=== PATIENT | male | born 1940 | race Caucasian/White ===

== ENCOUNTER 2022-06-29 18:01 | Inpatient (IN) | payer MEDICARE, OTHER ==
[~2022-06-29] VITALS: Ht 157.5 cm; Wt 47.6 kg
--- NOTE | 2022-06-29 19:06 | NUR ---
DR BRAR AT BEDSIDE FOR EVAL
--- NOTE | 2022-06-29 19:26 | NUR ---
COVID SWAB COLLECTED AND SENT TO LAB
[2022-06-29] MEDS ORDERED: MORPHINE SULFATE INJ 2 MG/ML DISP.SYRIN IV ONE (19:30)
--- NOTE | 2022-06-29 19:48 | NUR ---
RECEIVED PATIENT AAOX4. CAME WITH CC OF BLACK TARRY STOOL. PATIENT FOR ADMISSION. COVID SWAB DONE. ATTACHED TO MONITOR. VITALS CHECKED.
[2022-06-29] MEDS ORDERED: MORPHINE SULFATE INJ 4 MG/ML DISP.SYRIN ONE (19:56)
[2022-06-29 20:05] LABS: CARBON DIOXIDE 34 mmol/L (21-32); CHLORIDE 102 mmol/L (98-107); CREATININE 1.2 mg/dL (0.6-1.3); GLUCOSE 103 mg/dL (74-106); POTASSIUM 4.4 mmol/L (3.5-5.1); SODIUM SERUM 137 mmol/L (136-145); UREA NITROGEN, BLOOD 19 mg/dL (7-18)
--- NOTE | 2022-06-29 20:20 | NUR ---
IV CANNULA G20 INSERTED ON RIGHT AC. MEDS GIVEN
[2022-06-29 20:22] LABS: ALANINE AMINOTRANSFERASE 15 U/L (12-78); ALBUMIN 3.4 g/dL (3.4-5.0); ALKALINE PHOSPHATASE 59 U/L (46-116); ASPARTATE AMINOTRANSFERASE 20 U/L (15-37); BILIRUBIN,DIRECT 0.1 mg/dL (0.0-0.2); BILIRUBIN,TOTAL 0.4 mg/dL (0.2-1.0); LIPASE 99 U/L (73-393)
--- NOTE | 2022-06-29 20:23 | NUR ---
PT TO CT
[2022-06-29] MEDS ORDERED: IV NS 0.9% 250 ML IV ONE (20:25)
[2022-06-29] MEDS ORDERED: IOHEXOL-300 100 ML VIAL IV ONE (20:25)
[2022-06-29] MEDS ORDERED: CT SWABBABLE VALVE TRANS SET 1 EA INFUS.SET MC ONE (20:25)
[2022-06-29 20:40] LABS: BASOPHILS % (AUTO) 0.3 % (0.0-2.0); EOSINOPHILS % (AUTO) 1.1 % (0.0-6.0); HEMATOCRIT 39 % (39-51); HEMOGLOBIN 12.9 g/dL (13.5-17.5); LYMPHOCYTES # (AUTO) 1.3 K/uL (0.8-4.8); LYMPHOCYTES % (AUTO) 12.8 % (20.0-44.0); MEAN CORPUSCULAR HGB CONC 33 g/dl (31.0-36.0); MEAN CORPUSCULAR VOLUME 93 fL (80-96); MONOCYTES # (AUTO) 0.9 K/uL (0.1-1.30); MONOCYTES % (AUTO) 9.2 % (2.0-12.0); NEUTROPHILS # (AUTO) 7.5 K/uL (1.8-8.9); NEUTROPHILS % (AUTO) 76.6 % (43.0-81.0); PLATELET COUNT (AUTO) 234 K/uL (150-450); RED BLOOD CELL COUNT(AUTO) 4.19 MIL/uL (4.5-6.0); WHITE BLOOD COUNT (AUTO) 9.8 K/uL (4.3-11.0)
[2022-06-29] MEDS ORDERED: ALPRAZOLAM 0.5 MG TABLET PO ONE (21:30)
[2022-06-29] MEDS ORDERED: ALPRAZOLAM 0.5 MG TABLET ONE (21:32)
--- NOTE | 2022-06-29 22:18 | NUR ---
DR ELY PAGEChase
--- NOTE | 2022-06-29 22:49 | NUR ---
DR ELY PAGED AGAIN
[2022-06-29] MEDS ORDERED: ZOLPIDEM TARTRATE 5 MG TABLET PO PRN (23:30)
[2022-06-29] MEDS ORDERED: ONDANSETRON HCL/PF 4 MG/2 ML VIAL IVP PRN (23:30)
[2022-06-29] MEDS ORDERED: Z GUARD REMEDY 4 OZ OINT TP PRN (23:30)
[2022-06-29] MEDS ORDERED: MAG HYDROX/AL HYDROX/SIMETH 30 ML UDC PO PRN (23:30)
[2022-06-29] MEDS ORDERED: ACETAMINOPHEN 325 MG TABLET PO PRN (23:30)
[2022-06-29] MEDS ORDERED: MAGNESIUM HYDROXIDE 30 ML UDC PO PRN (23:30)
--- NOTE | 2022-06-30 01:10 | NUR ---
TRANSFERRED TO ROOM VIA BED
--- NOTE | 2022-06-30 01:14 | NUR ---
REPORT GIVEN TO PHILLIP QURESHI FOR NARENDRA
[2022-06-30 01:27] LABS: HEMOGLOBIN 12.4 g/dL (13.5-17.5)
[2022-06-30 01:30] VITALS: BP 129/59
--- NOTE | 2022-06-30 01:30 | NUR ---
RN ADMITTING NOTE PATIENT ADMITTED FROM ER FOR GI BLEED. PER PATIENT HE HAD AN EPISODE OF BLACK STOOL IN AM. HE STATES THAT HE ALSO WENT OT THE ER 3 WKS AGO FOR THE SAME PROBLEM BUT NOT ADMITTED. PATIENT IS A/O X 3-4 AT THIS TIME, ABLE TO MAKE NEEDS KNOWN. RECEIVED PATIENT ON 2 LPM VIA NC, SATTING 91-93%. PATIENT HAS HX OF COPD. PATIENT DOES NOT HAVE ANY SOB OR RESPIRATORY DISTRESS. PATIENT DENIES ANY DIFFICULTY BREATHING. PATIENT REPORT ABD PAIN, BUT NO PAIN MEDICATION NEEDED FOR NOW PER PATIENT. PATIENT'S SKIN INTACT. RAC 20 G PATENT AND INTACT, FLUSHING WELL. PATIENT STATES HE IS VACCINATED AGAINST COVID X 3. PATIENT WANTS TO SPEAK WITH MD FIRST BEFORE RECEIVING FLU SHOT OR PNEUMONIA SHOT, SAYS IF DR SAYS OKAY THEN HE WILL GET IT. PATIENT IS AMBULATORY WITH [facility]. BELONGINGS INVENTORIED. ORIENTED PATIENT TO ROOM, RN, AND WRAPPING MACHINE HELPER. SAFETY MEASURES IN PLACE: BED LOCKED AND IN LOWEST POSITION, CALL LIGHT WITHIN REACH, SIDE RAILS UP. WILL MONITOR PATIENT CLOSELY.
--- NOTE | 2022-06-30 01:45 | NUR ---
RN NOTE PATIENT REQUESTING SLEEPING MEDICATION. MD ORDERED RESTORIL 15 MG QHS.
[2022-06-30] MEDS: TEMAZEPAM 15 MG CAPSULE PO PRN ×2 (02:14→22:13)
[2022-06-30] MEDS: IV NS 0.9% 1,000 ML IV PRN ×2 (02:22→13:20)
[2022-06-30 06:04] LABS: BASOPHILS % (AUTO) 0.4 % (0.0-2.0); EOSINOPHILS % (AUTO) 1.7 % (0.0-6.0); HEMATOCRIT 37 % (39-51); HEMOGLOBIN 12.2 g/dL (13.5-17.5); LYMPHOCYTES # (AUTO) 1.4 K/uL (0.8-4.8); LYMPHOCYTES % (AUTO) 15.3 % (20.0-44.0); MEAN CORPUSCULAR HGB CONC 33 g/dl (31.0-36.0); MEAN CORPUSCULAR VOLUME 93 fL (80-96); MONOCYTES % (AUTO) 10.6 % (2.0-12.0); NEUTROPHILS # (AUTO) 6.8 K/uL (1.8-8.9); PLATELET COUNT (AUTO) 216 K/uL (150-450); RED BLOOD CELL COUNT(AUTO) 4.04 MIL/uL (4.5-6.0); WHITE BLOOD COUNT (AUTO) 9.4 K/uL (4.3-11.0)
--- NOTE | 2022-06-30 06:42 | NUR ---
RN CLOSING NOTE PATIENT IS IN BED, EYES CLOSED, EASILY AWAKENED WITH VERBAL AND TOUCH STIMULI. A/O X 3-4 AT THIS TIME, ABLE TO MAKE NEEDS KNOWN. PATIENT ON 2 LPM VIA NC, SATTING 91-93%. PATIENT DOES NOT HAVE ANY SOB OR RESPIRATORY DISTRESS. PATIENT DENIES ANY DIFFICULTY BREATHING. PATIENT DOES NOT REPORT ANY PAIN AT THIS TIME. R FA 20 G PATENT AND INTACT, FLUSHING WELL. WILL ENDORSE TO DAY RN TO OBTAIN MED LIST FROM . SCD'S ARE ON. SAFETY MEASURES IN PLACE: BED LOCKED AND IN LOWEST POSITION, CALL LIGHT WITHIN REACH, SIDE RAILS UP. ALL NEEDS MET AND ATTENDED. ALL ORDERS CARRIED OUT. WILL ENDORSE TO DAY SHIFT NURSE FOR NARENDRA.
--- NOTE | 2022-06-30 07:30 | NUR ---
RN OPENING NOTE PATIENT IS IN BED, EYES CLOSED, EASILY AWAKENED WITH VERBAL AND TOUCH STIMULI. A/O X 3-4 AT THIS TIME, ABLE TO MAKE NEEDS KNOWN. PATIENT ON 2 LPM VIA NC, SATURATING 91-93%. PATIENT DOES NOT HAVE ANY SOB OR RESPIRATORY DISTRESS. PATIENT DENIES ANY DIFFICULTY BREATHING. PATIENT DOES NOT REPORT ANY PAIN AT THIS TIME. IV ACCESS ON RFA 20G WITH NS RUNNING AT 90ML/HR. PATENT AND INTACT. SAFETY MEASURES IN PLACE: BED LOCKED AND IN LOWEST POSITION, CALL LIGHT WITHIN REACH, SIDE RAILS UP X2. WILL CONTINUE TO MONITOR
[2022-06-30 08:09] LABS: ALBUMIN 2.9 g/dL (3.4-5.0); BILIRUBIN,TOTAL 0.3 mg/dL (0.2-1.0); CALCIUM, SERUM 8.4 mg/dL (8.5-10.1); MAGNESIUM 1.9 mg/dL (1.8-2.4); PHOSPHORUS 3.4 mg/dL (2.5-4.9); POTASSIUM 3.8 mmol/L (3.5-5.1); TOTAL PROTEIN, SERUM 6.3 g/dL (6.4-8.2)
[2022-06-30] MEDS: PANTOPRAZOLE 40 MG VIAL IV SCH ×2 (09:17→20:23)
[2022-06-30] MEDS ORDERED: FAMO40TA7 PO (09:43)
[2022-06-30] MEDS ORDERED: TAMS-12 PO (09:43)
[2022-06-30] MEDS ORDERED: BICA50TA8 PO (09:43)
[2022-06-30] MEDS ORDERED: MIRT7.5T10 PO (09:43)
[2022-06-30] MEDS ORDERED: DUTA0.5C37 PO (09:43)
[2022-06-30] MEDS ORDERED: ALPR0.5T8 PO (09:43)
--- NOTE | 2022-06-30 11:08 | NUR ---
RN NOTES DR FARRELL ON UNIT AND INFORMED HIM TO DO HOME MEDS RECONCILIATION OF PT. HE STATED THAT HE WILL DO IT.
[2022-06-30] MEDS: PSYLLIUM SEED 1 PKT PACKET PO SCH (13:16)
--- NOTE | 2022-06-30 18:40 | NUR ---
MS RN CLOSING NOTES PATIENT IN BED WATCHING TV AT THIS TIME. HOB ELEVATED. A/O X3. ABLE TO VERBALIZED NEEDS. ON 02 VIA N/C @2LPM, TOLERATING WELL, BREATHING UNLABORED. IV ACCESS ON RFA #20G INTACT WITH IVF OF NS RUNNING AT 90 ML/HR, NO /S OF INFILTRATION AT SITE NOTED. ALL NEEDS AND CARE ATTENDED WELL. SAFETY MEASURES MAINTAINED: TRAY TABLE AND CALL LIGHT WITHIN REACH, BED ALARM ON, SIDE RAILS UP X2, BED LOCKED IN LOWEST POSITION. WILL ENDORSE NARENDRA TO [employer] RESELLER NURSE.
[2022-06-30 20:00] VITALS: BP 132/98
[2022-07-01] MEDS: IV NS 0.9% 1,000 ML IV PRN ×2 (00:49→11:25)
[2022-07-01 01:43] LABS: HEMOGLOBIN 11.4 g/dL (13.5-17.5)
--- NOTE | 2022-07-01 06:31 | NUR ---
RN NOTES: PATIENT IN BED RESTING.. A/O X3. ABLE TO VERBALIZED NEEDS. ON 02 VIA N/C @2LPM, TOLERATING WELL, BREATHING UNLABORED. IV ACCESS ON RFA #20G INTACT WITH IVF OF NS RUNNING AT 90 ML/HR, NO /S OF INFILTRATION AT SITE NOTED. ALL NEEDS AND CARE ATTENDED WELL. SAFETY MEASURES MAINTAINED: CALL LIGHT WITHIN REACH, BED ALARM ON, SIDE RAILS UP X2, BED LOCKED IN LOWEST POSITION. WILL ENDORSE NARENDRA TO [employer] SCIENCE HEALER NURSE. Addendum: 07/01/22 at 0636 by NATHANIEL HASTINGS RN RN NOTES: WILL ENDORSE NARENDRA TO DAY SHIFT NURSE.
[2022-07-01 07:00] VITALS: BP 142/67
--- NOTE | 2022-07-01 07:27 | NUR ---
RN OPENING NOTES RECEIVED PATIENT ASLEEP IN BED, EASILY AROUSED. A/O X3, VERBALLY RESPONSIVE. NO SIGNS OF ACUTE DISTRESS NOTED. ON O2 @ 2LPM VIA N/C, NO SOB NOTED, BREATHING EVEN AND UNLABORED. NO C/O PAIN AT THIS TIME. NOTED WITH IV ACCESS ON RIGHT FOREARM #20G. WITH NS @90ML/HR RUNNING. SAFETY MEASURE IN PLACE. BED IN LOWEST AND LOCKED POSITION, SIDE RAILS UP X2, CALL LIGHT PLACED WITHIN EASY REACH. WILL CONTINUE TO MONITOR PATIENT.
[2022-07-01] MEDS: PSYLLIUM SEED 1 PKT PACKET PO SCH (08:08)
[2022-07-01] MEDS: PANTOPRAZOLE 40 MG VIAL IV SCH (08:08)
[2022-07-01 15:27] LABS: BASOPHILS % (AUTO) 0.3 % (0.0-2.0); EOSINOPHILS % (AUTO) 1.1 % (0.0-6.0); HEMATOCRIT 35 % (39-51); HEMOGLOBIN 11.6 g/dL (13.5-17.5); LYMPHOCYTES % (AUTO) 12.7 % (20.0-44.0); MEAN CORPUSCULAR HGB CONC 33 g/dl (31.0-36.0); MEAN CORPUSCULAR VOLUME 92 fL (80-96); MONOCYTES # (AUTO) 0.5 K/uL (0.1-1.30); MONOCYTES % (AUTO) 6.1 % (2.0-12.0); NEUTROPHILS # (AUTO) 6.6 K/uL (1.8-8.9); NEUTROPHILS % (AUTO) 79.8 % (43.0-81.0); PLATELET COUNT (AUTO) 200 K/uL (150-450); RED BLOOD CELL COUNT(AUTO) 3.81 MIL/uL (4.5-6.0); WHITE BLOOD COUNT (AUTO) 8.2 K/uL (4.3-11.0)
[2022-07-01 15:45] LABS: CALCIUM, SERUM 8.1 mg/dL (8.5-10.1); POTASSIUM 4.1 mmol/L (3.5-5.1)
--- NOTE | 2022-07-01 18:47 | NUR ---
RN CLOSING NOTES PATIENT IN BED, AWAKE, A/O X3, VERBALLY RESPONSIVE. NO SIGNS OF ACUTE DISTRESS NOTED. CURRENTLY ON O2 @ 2LPM VIA N/C, NO SOB NOTED, BREATHING EVEN AND UNLABORED. NO C/O PAIN AT THIS TIME. IV ACCESS ON RIGHT FOREARM #20G, INTACT AND PATENT. WITH NS @90ML/HR RUNNING. SAFETY MEASURE IN PLACE. BED IN LOWEST AND LOCKED POSITION, SIDE RAILS UP X2, CALL LIGHT PLACED WITHIN EASY REACH. WILL ENDORSE TO NEXT SHIFT FOR CONTINUITY OF CARE.
[2022-07-01 20:00] VITALS: BP 125/73
[2022-07-01] MEDS: PANTOPRAZOLE 40 MG/PACK PACK PO SCH (21:09)
--- NOTE | 2022-07-01 21:16 | NUR ---
UNABLE TO SLEEP Patient in bed, request for sleep aid, unable to sleep. Given Ambien, will monitor hours of sleep. Fall precaution maintained.
--- NOTE | 2022-07-01 23:29 | NUR ---
AMBIEN 5MG INEFFECTIVE Patient c/o unable to sleep, Ambien 5mg ineffective. Patient request another sleep medication. Active orders Ambien 5mg HS PRN and Restoril 15mg HS PRN, orders clarified with MELITA Aguilera. New orders given- DC Ambien, Given Ambien 5mg x1 now. Will cont to monitor, maintained fall precaution.
[2022-07-01] MEDS ORDERED: ZOLPIDEM TARTRATE 5 MG TABLET PO PRN (23:30)
[2022-07-02] MEDS: IV NS 0.9% 1,000 ML IV PRN (01:33)
--- NOTE | 2022-07-02 06:19 | NUR ---
END OF SHIFT REPORT Patient in bed, Alert Oriented x3. Oxygen sat 97% on 2L NC, observed no sob with exertion. RFA IV line intact, IVF infusing. Ambulated to the bathroom with FWW. No BM during the shift. No episode of rectal bleed. 5 Hours of sleep with Ambien. Fall precaution maintained. GI recommend Colonoscopy outpatient. Plan for dc home. Will endorse to oncoming RN.
[2022-07-02 07:00] VITALS: BP 128/63
--- NOTE | 2022-07-02 07:46 | NUR ---
MS RN OPENING NOTE PATIENT LAYING IN BED, A/O X 3, ABLE TO MAKE NEEDS KNOWN, TOLERATING WELL ON 2 LPM O2 VIA CANNULA WITH NO S/S RESPIRATORY DISTRESS. NO COMPLAINTS OF PAIN OR DISCOMFORT AT THIS TIME. R FA IV CLEAN, INTACT, AND INFUSING NS @ 90 ML/HR. SAFETY MEASURES IN PLACE: BED IN LOWEST LOCKED POSITION, SIDE RAILS UP X 2, CALL LIGHT WITHIN REACH. WILL CONTINUE TO MONITOR.
[2022-07-02] MEDS: PANTOPRAZOLE 40 MG/PACK PACK PO SCH (08:37)
[2022-07-02] MEDS: PSYLLIUM SEED 1 PKT PACKET PO SCH (08:37)
--- NOTE | 2022-07-02 13:00 | NUR ---
MS BODY LINER NOTE PATIENT MADE AWARE OF MD DISCHARGE ORDER AND INSTRUCTIONS. PATIENT VERBALIZED UNDERSTANDING OF MD DISCHARGE INSTRUCTIONS AND POSSESSION OF ALL BELONGINGS, AND PATIENT SIGNED MD DISCHARGE INSTRUCTIONS SHEET AND BELONGINGS LIST. PATIENT STATED HE DID NOT WANT TO GO TO A SNF AT THIS TIME AND WANTED TO BE DISCHARGED HOME, PATIENT A/O X 3 AND SELF-RESPONSIBLE, AGREED TO TRANSPORT HIM BACK HOME. IV LINE AND ID BAND REMOVED. COPIES OF ALL PAPERWORK PROVIDED. PATIENT TRANSFERRED OFF OF UNIT VIA AMBULATION ACCOMPANIED BY HIS . PATIENT STABLE AT TIME OF DISCHARGE.
== END 2022-07-02 13:00 | disposition home health service (06) | DRG 394 ==
LOC: ER 18:13 → TELE 06-30 00:50 → MED 06-30 01:51
PROVIDERS: ADMIT Nurse Practitioner Acute Care; ATTEND Nurse Practitioner Acute Care
DX: K64.9 Unspecified hemorrhoids (principal); E44.0 Moderate protein-calorie malnutrition; Z68.1 Body mass index [BMI] 19.9 or less, adult; R64 Cachexia; C61 Malignant neoplasm of prostate; J44.9 Chronic obstructive pulmonary disease, unspecified; Z20.822 Contact with and (suspected) exposure to COVID-19; K21.9 Gastro-esophageal reflux disease without esophagitis; Z79.899 Other long term (current) drug therapy; R79.89 Other specified abnormal findings of blood chemistry; F17.210 Nicotine dependence, cigarettes, uncomplicated; N40.0 Benign prostatic hyperplasia without lower urinary tract symptoms; E88.09 Other disorders of plasma-protein metabolism, not elsewhere classified; N18.9 Chronic kidney disease, unspecified; N20.0 Calculus of kidney; N28.1 Cyst of kidney, acquired; K59.00 Constipation, unspecified; K57.30 Diverticulosis of large intestine without perforation or abscess without bleeding
CPT/HCPCS: 36415; 70450-TC; 71045-TC; 80048-TC; 80053-TC; 80076-TC; 83605-TC; 83690-TC; 83735-TC; 84100-TC; 84484-TC; 85025-TC; 85027-TC; 85730-TC; 87081-TC; 94799-TC; C9113; C9803; G0378; J2270; J7030; J7050; Q9967

== ENCOUNTER 2024-04-14 15:57 | Inpatient (IN) | payer MEDICARE, OTHER ==
[~2024-04-14] VITALS: Ht 160 cm; Wt 47.6 kg
[~2024-04-14 15:57] MED LIST: ALPR0.5T8 PO; BICA50TA8 PO; DUTA0.5C37 PO; FAMO40TA7 PO; MIRT7.5T10 PO; TAMS-12 PO
[2024-04-14 17:06] LABS: BASOPHILS % (AUTO) 0.7 % (0.0-2.0); EOSINOPHILS # (AUTO) 0.1 K/uL (0.0-0.7); EOSINOPHILS % (AUTO) 1.3 % (0.0-6.0); HEMATOCRIT 34 % (39-51); HEMOGLOBIN 11.1 g/dL (13.5-17.5); LYMPHOCYTES # (AUTO) 1.1 K/uL (0.8-4.8); LYMPHOCYTES % (AUTO) 15.1 % (20.0-44.0); MEAN CORPUSCULAR HEMOGLOBIN 30 PG (26.0-33.0); MEAN CORPUSCULAR HGB CONC 33 g/dl (31.0-36.0); MEAN CORPUSCULAR VOLUME 90 fL (80-96); MONOCYTES # (AUTO) 0.6 K/uL (0.1-1.30); MONOCYTES % (AUTO) 8.4 % (2.0-12.0); NEUTROPHILS # (AUTO) 5.5 K/uL (1.8-8.9); NEUTROPHILS % (AUTO) 74.5 % (43.0-81.0); PLATELET COUNT (AUTO) 249 K/uL (150-450); RED BLOOD CELL COUNT(AUTO) 3.74 MIL/uL (4.5-6.0); WHITE BLOOD COUNT (AUTO) 7.4 K/uL (4.3-11.0)
[2024-04-14] MEDS: ALBUTEROL FS 2.5 MG/3 ML VIAL.NEB NEB ONE ×2 (17:15→19:37)
[2024-04-14] MEDS ORDERED: ALBUTEROL FS 2.5 MG/3 ML VIAL.NEB ONE ×2 (17:16→19:40)
[2024-04-14 17:24] VITALS: O2SAT 90
[2024-04-14 17:38] VITALS: O2SAT 100
[2024-04-14 17:39] LABS: POTASSIUM 5.2 mmol/L (3.5-5.1)
[2024-04-14 17:41] LABS: CARBON DIOXIDE 32 mmol/L (21-32); CHLORIDE 103 mmol/L (98-107); SODIUM SERUM 136 mmol/L (136-145)
[2024-04-14 17:42] LABS: CALCIUM, SERUM 8.5 mg/dL (8.5-10.1); GLUCOSE 100 mg/dL (74-106); UREA NITROGEN, BLOOD 25 mg/dL (7-18)
[2024-04-14 17:43] LABS: ALANINE AMINOTRANSFERASE 28 U/L (12-78); ALBUMIN 2.6 g/dL (3.4-5.0); ALKALINE PHOSPHATASE 59 U/L (46-116); ASPARTATE AMINOTRANSFERASE 24 U/L (15-37); BILIRUBIN,DIRECT 0.1 mg/dL (0.0-0.2); BILIRUBIN,TOTAL 0.2 mg/dL (0.2-1.0); TOTAL PROTEIN, SERUM 6.5 g/dL (6.4-8.2)
[2024-04-14] MEDS ORDERED: DICY10CA13 PO (18:55)
[2024-04-14] MEDS ORDERED: CHOL100062 PO (18:55)
[2024-04-14] MEDS ORDERED: ASPI-1420 PO (18:55)
[2024-04-14] MEDS ORDERED: LISI-768 PO (18:55)
[2024-04-14] MEDS ORDERED: SENN8.6T19 PO (18:55)
[2024-04-14] MEDS ORDERED: ZOLP5TAB2 PO (18:55)
[2024-04-14] MEDS ORDERED: BISA10SU11 RC (18:55)
[2024-04-14] MEDS ORDERED: ALBU8.5H8 IH (18:55)
[2024-04-14] MEDS ORDERED: FLUT1BLS IH (18:55)
[2024-04-14] MEDS ORDERED: METO25TA6 PO (18:55)
[2024-04-14] MEDS ORDERED: ARIP2TAB3 PO (18:55)
[2024-04-14] MEDS ORDERED: OMEP40CA21 PO (18:55)
[2024-04-14] MEDS ORDERED: FOLI0.4T6 PO (18:55)
[2024-04-14] MEDS ORDERED: HYDR-4209 PO (18:55)
[2024-04-14] MEDS ORDERED: THIA50TA10 PO (18:55)
[2024-04-14] MEDS ORDERED: MIRT-90 PO (18:55)
[2024-04-14] MEDS ORDERED: DIVA125C5 PO (18:55)
[2024-04-14] MEDS ORDERED: CYCL30DR EACHEYE (18:55)
[2024-04-14] MEDS ORDERED: ATOR20TA PO (18:55)
[2024-04-14] MEDS ORDERED: ONDA-97 PO (18:55)
[2024-04-14] MEDS ORDERED: ASCO-352 PO (18:55)
[2024-04-14] MEDS ORDERED: NA P133E RC (18:55)
[2024-04-14] MEDS ORDERED: BENZ200C53 PO (18:55)
[2024-04-14] MEDS ORDERED: ALBU1.257 IH (18:55)
[2024-04-14] MEDS ORDERED: IPRA0.2S49 IH (18:55)
[2024-04-14] MEDS ORDERED: LIDO30AD10 TP (18:55)
[2024-04-14] MEDS ORDERED: MEMA10TA PO (18:55)
[2024-04-14] MEDS ORDERED: MULT-1275 PO (18:55)
[2024-04-14] MEDS ORDERED: ACET325T53 PO (18:55)
[2024-04-14] MEDS ORDERED: MAG30ORA PO (18:55)
[2024-04-14] MEDS ORDERED: IPRA3AMP23 IH (18:55)
[2024-04-14 19:41] VITALS: O2SAT 94
[2024-04-14 19:56] VITALS: O2SAT 100
[2024-04-14] MEDS ORDERED: methylPREDNISolone SOD SUCC 40 MG/ML VIAL ONE (20:00)
[2024-04-14] MEDS: methylPREDNISolone SOD SUCC 125 MG/2ML VIAL IV ONE (20:11)
[2024-04-14 20:26] LABS: APPEARANCE,URINE Clear (CLEAR); BILIRUBIN,URINE Negative (NEGATIVE); BLOOD, URINE Negative Ery/uL (NEGATIVE); COLOR,URINE YELLOW (YELLOW); KETONES,URINE Negative (NEGATIVE); LEUKOCYTE ESTERASE ,URINE Negative (NEGATIVE); NITRITE, URINE Negative (NEGATIVE); PROTEIN,URINE Negative (NEGATIVE); UGLUCOSE Negative (NEGATIVE); UROBILINOGEN,URINE 0.2 EU/dL (0.2)
[2024-04-14 21:35] VITALS: BP 136/66; TEMP 98.1; O2SAT 93
[2024-04-14] MEDS ORDERED: ZOLPIDEM TARTRATE 5 MG TABLET PO PRN (22:00)
[2024-04-14] MEDS ORDERED: ONDANSETRON HCL/PF 4 MG/2 ML VIAL IVP PRN (22:00)
[2024-04-14] MEDS ORDERED: ACETAMINOPHEN 325 MG TABLET PO PRN (22:00)
[2024-04-14] MEDS ORDERED: Z GUARD REMEDY 4 OZ OINT TP PRN (22:00)
[2024-04-14] MEDS ORDERED: MAG HYDROX/AL HYDROX/SIMETH 30 ML UDC PO PRN (22:00)
[2024-04-14] MEDS ORDERED: AZITHROMYCIN 500 MG VIAL ONE (22:41)
[2024-04-14] MEDS: AZITHROMYCIN 500 MG in IV D5W 250 ML IV SCH (22:50)
[2024-04-14] MEDS: SODIUM POLYSTYRENE SULFONATE 15 G/60 ML BOTTLE PO ONE (23:03)
[2024-04-14] MEDS: ENOXAPARIN SODIUM 40 MG/0.4 ML DISP.SYRIN SQ SCH (23:05)
[2024-04-15] VITALS (12 sets, daily range): BP systolic 101–112; BP diastolic 62–67; TEMP 98–98.1; O2SAT 90–100
[2024-04-15] MEDS: ALBUTEROL FS 2.5 MG/3 ML VIAL.NEB NEB SCH (01:55)
[2024-04-15] MEDS: IPRATROPIUM NEB FS 0.5 MG/2.5 ML AMPUL.NEB NEB SCH (01:56)
[2024-04-15] MEDS: methylPREDNISolone SOD SUCC 40 MG/ML VIAL IV SCH (04:47)
[2024-04-15 06:43] LABS: BASOPHILS % (AUTO) 0.1 % (0.0-2.0); HEMATOCRIT 30 % (39-51); HEMOGLOBIN 9.9 g/dL (13.5-17.5); LYMPHOCYTES # (AUTO) 0.5 K/uL (0.8-4.8); LYMPHOCYTES % (AUTO) 14.3 % (20.0-44.0); MEAN CORPUSCULAR HEMOGLOBIN 30 PG (26.0-33.0); MEAN CORPUSCULAR HGB CONC 33 g/dl (31.0-36.0); MEAN CORPUSCULAR VOLUME 91 fL (80-96); MONOCYTES # (AUTO) 0.1 K/uL (0.1-1.30); MONOCYTES % (AUTO) 2.1 % (2.0-12.0); NEUTROPHILS # (AUTO) 3.2 K/uL (1.8-8.9); NEUTROPHILS % (AUTO) 83.5 % (43.0-81.0); PLATELET COUNT (AUTO) 201 K/uL (150-450); RED CELL DISTRIBUTION WIDTH 15.9 % (11.5-15.0); WHITE BLOOD COUNT (AUTO) 3.8 K/uL (4.3-11.0)
[2024-04-15 07:08] LABS: ALANINE AMINOTRANSFERASE 20 U/L (12-78); ALBUMIN 2.2 g/dL (3.4-5.0); ALKALINE PHOSPHATASE 57 U/L (46-116); ASPARTATE AMINOTRANSFERASE 17 U/L (15-37); BILIRUBIN,DIRECT 0.1 mg/dL (0.0-0.2); BILIRUBIN,TOTAL 0.2 mg/dL (0.2-1.0); CALCIUM, SERUM 8.2 mg/dL (8.5-10.1); CARBON DIOXIDE 26 mmol/L (21-32); CHLORIDE 104 mmol/L (98-107); CREATININE 0.7 mg/dL (0.6-1.3); GLUCOSE 129 mg/dL (74-106); PHOSPHORUS 3.7 mg/dL (2.5-4.9); POTASSIUM 4.3 mmol/L (3.5-5.1); SODIUM SERUM 138 mmol/L (136-145); TOTAL PROTEIN, SERUM 5.8 g/dL (6.4-8.2); UREA NITROGEN, BLOOD 21 mg/dL (7-18)
[2024-04-15] MEDS: ASCORBIC ACID 500 MG TABLET PO SCH (08:19)
[2024-04-15] MEDS: MULTIVITAMINS,THERAGRAN 1 UDTAB TABLET PO SCH (08:19)
[2024-04-15] MEDS: PANTOPRAZOLE 40 MG TABLET.DR PO SCH (08:19)
[2024-04-15] MEDS: DIVALPROEX SODIUM 125 MG CAP.SPRINK PO SCH (08:19)
[2024-04-15] MEDS: MEMANTINE HCL 5 MG TABLET PO SCH (08:19)
[2024-04-15] MEDS: FOLIC ACID 1 MG TABLET PO SCH (08:19)
[2024-04-15] MEDS: ARIPIPRAZOLE 2 MG TABLET PO SCH (08:19)
[2024-04-15] MEDS: ASPIRIN EC 81 MG TABLET.DR PO SCH (08:19)
[2024-04-15] MEDS: SENNOSIDES 8.6 MG TABLET PO SCH (08:19)
[2024-04-15] MEDS: CHOLECALCIFEROL 1,000 UNIT TABLET (VIT D3) PO SCH (08:19)
[2024-04-15] MEDS: METOPROLOL TARTRATE 25 MG TABLET PO SCH (08:20)
[2024-04-15] MEDS: LIDOCAINE 5% (PATCH) 1 EA PATCH TP SCH (08:20)
[2024-04-15] MEDS: FLUTICASONE/VILANTEROL 1 EACH BLST.W.DEV IH SCH (08:20)
[2024-04-15] MEDS: THIAMINE HCL 100 MG TABLET PO SCH (08:21)
[2024-04-15] MEDS: LISINOPRIL (5MG) 5 MG TABLET PO SCH (08:22)
[2024-04-15] MEDS ORDERED: Medication Not On Formulary EA (Cyclosporine (Restasis) 1 DROP) EACHEYE SCH (09:00)
[2024-04-15] MEDS: AZITHROMYCIN 250 MG TABLET PO SCH (10:03)
[2024-04-15] MEDS: POLYVINYL ALCOHOL 15 ML BOTTLE EACHEYE SCH (20:00)
[2024-04-15] MEDS: DOXYCYCLINE HYCLATE (100 MG) 100 MG TABLET PO SCH (20:27)
[2024-04-15] MEDS: MAGNESIUM HYDROXIDE 30 ML UDC PO PRN (20:46)
[2024-04-15] MEDS: TAMSULOSIN 0.4 MG CAP.SR.24H PO SCH (21:20)
[2024-04-15] MEDS: ATORVASTATIN 10 MG TABLET PO SCH (21:20)
[2024-04-15] MEDS: MIRTAZAPINE 15 MG TABLET PO SCH (21:21)
[2024-04-15] MEDS ORDERED: MIRTAZAPINE 15 MG TABLET PO SCH (22:00)
[2024-04-15] MEDS: TRAZODONE 50 MG TABLET PO PRN (22:01)
[2024-04-16] VITALS (9 sets, daily range): BP systolic 108–129; BP diastolic 55–69; TEMP 97.5–98.4; O2SAT 91–100
[2024-04-16 06:49] LABS: BASOPHILS % (AUTO) 0.1 % (0.0-2.0); HEMATOCRIT 30 % (39-51); HEMOGLOBIN 9.8 g/dL (13.5-17.5); LYMPHOCYTES # (AUTO) 0.6 K/uL (0.8-4.8); LYMPHOCYTES % (AUTO) 6.6 % (20.0-44.0); MEAN CORPUSCULAR HEMOGLOBIN 30 PG (26.0-33.0); MEAN CORPUSCULAR HGB CONC 33 g/dl (31.0-36.0); MEAN CORPUSCULAR VOLUME 91 fL (80-96); MONOCYTES # (AUTO) 0.3 K/uL (0.1-1.30); MONOCYTES % (AUTO) 3.3 % (2.0-12.0); NEUTROPHILS # (AUTO) 8.2 K/uL (1.8-8.9); PLATELET COUNT (AUTO) 213 K/uL (150-450); RED BLOOD CELL COUNT(AUTO) 3.24 MIL/uL (4.5-6.0); RED CELL DISTRIBUTION WIDTH 16.1 % (11.5-15.0); WHITE BLOOD COUNT (AUTO) 9.1 K/uL (4.3-11.0)
[2024-04-16 07:06] LABS: CALCIUM, SERUM 9.2 mg/dL (8.5-10.1); CARBON DIOXIDE 35 mmol/L (21-32); CHLORIDE 103 mmol/L (98-107); CREATININE 0.9 mg/dL (0.6-1.3); GLUCOSE 135 mg/dL (74-106); MAGNESIUM 2.1 mg/dL (1.8-2.4); PHOSPHORUS 3.8 mg/dL (2.5-4.9); POTASSIUM 4.6 mmol/L (3.5-5.1); SODIUM SERUM 139 mmol/L (136-145); UREA NITROGEN, BLOOD 29 mg/dL (7-18)
[2024-04-16] MEDS: ENSURE ENLIVE 237 ML LIQUID (VANILLA) PO SCH (17:07)
[2024-04-16] MEDS: MIRTAZAPINE 15 MG TABLET PO SCH (21:06)
[2024-04-17] VITALS (9 sets, daily range): BP systolic 115–136; BP diastolic 58–87; TEMP 97.6–98.4; O2SAT 74–99
[2024-04-17 06:43] LABS: CALCIUM, SERUM 8.4 mg/dL (8.5-10.1); CARBON DIOXIDE 30 mmol/L (21-32); CHLORIDE 106 mmol/L (98-107); CREATININE 0.8 mg/dL (0.6-1.3); GLUCOSE 82 mg/dL (74-106); POTASSIUM 4.1 mmol/L (3.5-5.1); SODIUM SERUM 142 mmol/L (136-145); UREA NITROGEN, BLOOD 35 mg/dL (7-18)
[2024-04-17 06:44] LABS: BASOPHILS % (AUTO) 0.3 % (0.0-2.0); EOSINOPHILS % (AUTO) 0.2 % (0.0-6.0); HEMATOCRIT 31 % (39-51); HEMOGLOBIN 10.5 g/dL (13.5-17.5); LYMPHOCYTES # (AUTO) 1.5 K/uL (0.8-4.8); LYMPHOCYTES % (AUTO) 17.7 % (20.0-44.0); MEAN CORPUSCULAR HEMOGLOBIN 30 PG (26.0-33.0); MEAN CORPUSCULAR HGB CONC 33 g/dl (31.0-36.0); MEAN CORPUSCULAR VOLUME 91 fL (80-96); MONOCYTES # (AUTO) 0.6 K/uL (0.1-1.30); MONOCYTES % (AUTO) 6.4 % (2.0-12.0); NEUTROPHILS # (AUTO) 6.6 K/uL (1.8-8.9); NEUTROPHILS % (AUTO) 75.4 % (43.0-81.0); PLATELET COUNT (AUTO) 200 K/uL (150-450); RED BLOOD CELL COUNT(AUTO) 3.45 MIL/uL (4.5-6.0); RED CELL DISTRIBUTION WIDTH 16.1 % (11.5-15.0); WHITE BLOOD COUNT (AUTO) 8.7 K/uL (4.3-11.0)
[2024-04-17] MEDS: methylPREDNISolone SOD SUCC 40 MG/ML VIAL IV SCH (08:35)
[2024-04-17] MEDS ORDERED: PANT40TA49 PO (11:22)
[2024-04-17] MEDS ORDERED: LACT-246 PO (11:22)
[2024-04-17] MEDS ORDERED: PRED20TA PO (11:22)
[2024-04-17] MEDS ORDERED: MIRT-121 PO (11:22)
[2024-04-17] MEDS ORDERED: DOXY100T2 PO (11:22)
[2024-04-17 18:34] LABS: THYROID STIMULATING HORMONE 1.1 uIU/mL (0.358-3.74)
[2024-04-18] VITALS (9 sets, daily range): BP systolic 105–111; BP diastolic 54–55; TEMP 97.7; O2SAT 65–98
[2024-04-18] MEDS: DILTIAZEM HCL CD 240 MG PO SCH (09:00)
== END 2024-04-18 21:00 | DRG 193 ==
LOC: ER 16:04 → TELE 20:50 → MED 04-17 10:16
PROVIDERS: ADMIT Nurse Practitioner Family; ATTEND Nurse Practitioner Acute Care
DX: J15.9 Unspecified bacterial pneumonia (principal); G93.41 Metabolic encephalopathy; J44.1 Chronic obstructive pulmonary disease with (acute) exacerbation; E44.0 Moderate protein-calorie malnutrition; R45.851 Suicidal ideations; Z68.1 Body mass index [BMI] 19.9 or less, adult; J44.0 Chronic obstructive pulmonary disease with (acute) lower respiratory infection; F03.A3 Unspecified dementia, mild, with mood disturbance; F03.A2 Unspecified dementia, mild, with psychotic disturbance; J98.11 Atelectasis; E87.5 Hyperkalemia; E86.0 Dehydration; E88.09 Other disorders of plasma-protein metabolism, not elsewhere classified; Z20.822 Contact with and (suspected) exposure to COVID-19; K21.9 Gastro-esophageal reflux disease without esophagitis; Z85.46 Personal history of malignant neoplasm of prostate; Z91.018 Allergy to other foods; Z79.899 Other long term (current) drug therapy; Z79.51 Long term (current) use of inhaled steroids; Z79.82 Long term (current) use of aspirin; Z99.81 Dependence on supplemental oxygen; D64.9 Anemia, unspecified; F17.200 Nicotine dependence, unspecified, uncomplicated; F39 Unspecified mood [affective] disorder; F29 Unspecified psychosis not due to a substance or known physiological condition; I71.22 Aneurysm of the aortic arch, without rupture; I10 Essential (primary) hypertension; I70.0 Atherosclerosis of aorta; N20.0 Calculus of kidney; N40.0 Benign prostatic hyperplasia without lower urinary tract symptoms
CPT/HCPCS: 36415; 71045-TC; 71250-TC; 71260-TC; 80048-TC; 80061-TC; 80076-TC; 82728-TC; 83540-TC; 83735-TC; 84100-TC; 84439-TC; 84443-TC; 84484-TC; 85025-TC; 94760-TC; 94761-TC; 94762-TC; 94799-TC; 98960; A4223; G0378; J0456; J1650; J2919; J7050; J7060